=== PATIENT | male | born 1980 | race Caucasian/White ===

== ENCOUNTER 2016-08-06 14:27 | Inpatient (IN) | payer OTHER ==
[~2016-08-06] VITALS: Ht 170.2 cm; Wt 61.6 kg
[~2016-08-06 14:27] MED LIST: CELE20TA PO; TRAZ150T PO; ZOLO50TA OR; [UNRECOGNIZED DRUG - REMARK]; no home meds
[2016-08-06 15:36] LABS: MEAN CORPUSCULAR HGB CONC 33.8 g/dl (32.0-36.5); MEAN CORPUSCULAR VOLUME 94.6 fl (80.0-96.0); RED CELL DISTRIBUTION WIDTH 12.9 % (11.5-14.5); WHITE BLOOD COUNT 6.7 K/mm3 (4.0-10.0)
[2016-08-06 16:02] LABS: ALBUMIN 3.5 GM/DL (3.2-5.2); ALBUMIN/GLOBULIN RATIO 1.52 (1.00-1.93); ALKALINE PHOSPHATASE 85 U/L (45-117); ALT/SGPT 53 U/L (12-78); ANION GAP 10 MEQ/L (8-16); AST/SGOT 25 U/L (15-37); BILIRUBIN,DIRECT < 0.1 MG/DL (0.0-0.2); BILIRUBIN,TOTAL 0.2 MG/DL (0.2-1.0); BLOOD UREA NITROGEN 16 MG/DL (7-18); CALCIUM LEVEL 8.4 MG/DL (8.5-10.1); CARBON DIOXIDE LEVEL 26 MEQ/L (21-32); CHLORIDE LEVEL 107 MEQ/L (98-107); CREATININE FOR GFR 0.76 MG/DL (0.70-1.30); GLOMERULAR FILTRATION RATE > 60.0 (>60); GLUCOSE, FASTING 97 MG/DL (70-105); POTASSIUM SERUM 4.3 MEQ/L (3.5-5.1); SODIUM LEVEL 143 MEQ/L (136-145); TOTAL PROTEIN 5.8 GM/DL (6.4-8.2)
[2016-08-06 17:27] LABS: AMPHETAMINES LEVEL URINE NEGATIVE (NEGATIVE); BENZODIAZEPINES URINE NEGATIVE (NEGATIVE); COCAINE METABOLITE URINE NEGATIVE (NEGATIVE); CONTROL LINE INT CTR LINE PRESENT; METHADONE URINE NEGATIVE (NEGATIVE); OPIATES URINE NEGATIVE (NEGATIVE); TRICYCLIC ANTIDEPRESS URINE NEGATIVE (NEGATIVE)
[2016-08-06] MEDS ORDERED: MOM 30ML SUSPENSION UDC PO PRN (21:45)
[2016-08-06] MEDS ORDERED: MAALOX 30 ML SUSP *UDC PO PRN (21:45)
[2016-08-06] MEDS ORDERED: ACETAMINOPHEN TAB 650MG DOSE (2X325MG) PO PRN (21:45)
--- NOTE | 2016-08-06 22:38 | EDDOCDS ---
Nurse's Notes [facility] Name: Otis Benitez Age: 35 yrs Sex: Male : 1980 Arrival Date: 08/06/2016 Time: 14:27 Bed OBSERVATION Private MD: Diagnosis: Major depressive disorder, recurrent;Suicidal ideations Presentation: 08/06 14:31 Presenting complaint: Patient states: pt had been "kicked out" of his home by his mk4 mother and staying with a friend, today he smoked a lot of marijuana and called his mother and told her he was going to kill himself, denies this to me, states he may have said that but he is not s/i or h/i. Mental Health Triage Level: Level 2: The patient displays active suicidal ideations. Adult Sepsis Screening: The patient does not have new or worsening altered mentation. Patient's respiratory rate is less than 22. Systolic blood pressure is greater than 100. Patient has a qSOFA score of 0- Negative Sepsis Screen. Suicide/Homicide risk assessment- The patient admits to and/or has been reported to be having suicidal ideations. Patient denies SI and HI but presents with another emotional, behavioral or other mental health complaint. The patient reports that he/she has not been admitted to an inpatient mental health facility in the last 30 days. The patient reports that he/she has a recent or current history of substance abuse. The patient reports that he/she has no prior history of suicide attempt and/or organized plan. The patient reports that he/she has not experienced a significant life altering event in the last 30 days. The patient reports that he/she lacks adequate social support. Status: Patient is not a guest services assistant or dependent. Transition of care: patient was not received from another setting of care. 14:31 Acuity: IMANI Level 3 4 14:31 Method Of Arrival: Police Car 4 Triage Assessment: 14:36 General: Appears in no apparent distress. Pain: Denies pain. HIV screening NA for this 4 visit Offered previously. Historical: - Allergies: PENICILLINS; - Home Meds: 1. none - PMHx: Asthma; - PSHx: none; - Social history: Smoking status: No barriers to communication noted, The patient speaks fluent Indonesian, Smoking status: Patient uses tobacco products, heavy tobacco smoker. - Family history: Not pertinent. - : The pt / caregiver states he / she is not on anticoagulants. Home medication list is obtained from the patient. - Exposure Risk Screening:: None identified. Screenin:07 Screening information is obtained from the patient. Fall risk: No risks identified. mk4 Assistance ADL's: requires no assistance with activities of daily living. Abuse/DV Screen: The patient / caregiver reports he/she is: not in a situation that causes fear, pain or injury. Nutritional screening: No deficits noted. Advance Directives: Currently, there is no health care proxy. There is no active DNR order. There is no living will. There is no Power of Funding Coordinator. Advance directive information has not previously been placed in an [facility] medical record. Further advance directive information is declined. home support is adequate. Assessment: 14:45 General: Appears in no apparent distress, Smells of marijuana, eyes glassy. Pain: mk4 Denies pain. Neurological: Level of Consciousness is awake, alert. Respiratory: Airway is patent Respiratory effort is even, unlabored, Respiratory pattern is regular. Derm: No deficits noted. 16:00 General: Appears in no apparent distress, comfortable. Neurological: Level of mk4 Consciousness is awake, Oriented to person, place, time. 17:00 General: Appears in no apparent distress, comfortable. Respiratory: Airway is patent mk4 Respiratory effort is even, unlabored, Respiratory pattern is regular, symmetrical. 18:07 General: Appears in no apparent distress, comfortable, Behavior is cooperative, mk4 pleasant. 18:40 General: Appears in no apparent distress, comfortable, resting with eyes closed in room mk4 asked that dinner tray be left pt will eat it later. 19:10 General: Appears in no apparent distress, comfortable, Behavior is cooperative, quiet. slm General: resting on stretcher security observing . Respiratory: Airway is patent Respiratory effort is even, unlabored, Respiratory pattern is regular. 20:02 General: Appears in no apparent distress, comfortable, Behavior is restless. General: slm resting on stretcher pt questioning lead technical writer on when he can leave . Respiratory: Airway is patent Respiratory effort is even, unlabored. Derm: Skin is intact, Skin is pink, warm & dry. 20:47 General: Appears in no apparent distress, comfortable, Behavior is cooperative, slm pleasant. General: pt resting on stretcher security observing . Respiratory: Airway is patent Respiratory effort is even, unlabored. 21:27 General: Appears in no apparent distress, comfortable, Behavior is appropriate for age, slm cooperative, pleasant. General: resting on stretcher security observing . Respiratory: Airway is patent Respiratory effort is even, unlabored. Derm: Skin is pink, warm & dry. 22:14 General: Appears in no apparent distress, comfortable, Behavior is anxious, restless. slm General: pt upset about admission security observing . Respiratory: Airway is patent Respiratory effort is even, unlabored. Derm: Skin is pink, warm & dry. 22:33 General: Appears in no apparent distress, Behavior is anxious, appropriate for age, slm cooperative. Respiratory: Airway is patent. Derm: Skin is intact, Skin is pink, warm & dry. Mental Health Eval: 16:18 Mental health consult is initiated at 16:18. Status: The patient is not a ml4 guest services assistant or dependent. [facility] Behavioral Health: The patient is not an established patient of [facility] Behavioral Health. Referral Information: Evaluation referral is generated by a police agency: [employer] on . The patient was referred for evaluation because Pt made threat to harm self. 16:42 Subjective: The patients chief complaint is Per pt's mother, pt called her today and ca said he took OD of aspirin then retracted statement and told her he planned to take OD. Mother called police and pt brought to ED. Pt initially reluctant to speak with this lead technical writer, then stated he was not suicidal. "Save the bed for someone who needs it." Pt says he is upset because his parents still will not allow him to return home, but he does not say why. Pt has not lived at home for 8 months. Delusions are denied. Patient's mood is depressed, irritable, Hallucinations are denied. Pt has significant hx of drug and alcohol abuse. He has had 2 prior psych admissions in 2012 for SI and an OD of Xanax. Pt minimizing events today and does not elaborate on incident. 17:20 Subjective: Spoke with pt's mother (Lori [phone]) who says she called 911 because ca pt told her via text that he had taken OD of 25 aspirin. After mother called pt he told her he was "planning to take an OD." Mother feels pt is upset because parents won't allow him to return to their home due to his continued drug abuse. Pt was told to leave friend's home today, after staying there for several months. 17:51 Mental Health history: alcohol abuse, depression, abusing marijuana. methamphetamine. ca narcotics. Mental Health Admissions: 11/07 and 06/09 for SI, Depression and OD Current Outpatient Mental Health Services: None. Current living environment is homeless. The patient currently lives Pt lived with friend for 8 months and was asked to leave that home today. The patient is single. Patient presents to Emergency Department with the following symptoms within the past 2 weeks: depressed mood, drug abuse, feelings of helplessness/hopelessness, non-compliance, poor impulse control, relational problem, suicidal ideation with plan for pills. Substance abuse: Patient uses marijuana. Mental status exam: Patients appearance is disheveled Patient's behavior is superficially cooperative Speech is normal. Affect is appropriate. Mood is appropriate. Hallucinations are denied. Appetite is normal. Memory is good. Energy level is normal. Content of thought is Depression Thought process is intact. Cognitive level is oriented to person, place, time and situation Patient's insight is poor. Judgement is poor. Rapport with interviewer is guarded. Suicidal Ideation is denied. Homicidal ideation is denied. Disposition: Medically cleared for disposition by Danie Croft DO Psychiatric Consult is performed by phone with Dr Magen Aguilar. 18:52 Narrative: Awaiting face to face with Dr Aguilar. sc 21:30 Narrative: Dr. Aguilar currently at bedside. [facility] 22:03 Disposition: Psychiatric Consult is a face to face evaluation performed by Dr Us Ifeanyi Aguilar. [facility] Admission Criteria: The patient is experiencing suicidal ideation. The patient requires continuous observation and/or control to protect self, others or property. The patient's care requires a multi-modal treatment plan under close supervision and coordination due to the complexity and severity of the patient's symptoms. The patient requires administration and monitoring of psychoactive medications by skilled medical providers due to the side effects of the psychoactive medications or significant dosage adjustments. Legal Status: Patient's legal status will be Emergency admission: . [place] Safe Act: [place] Safe Act is applicable to this patient. The patient poses a risk to self or other and the Nursing Harnessmaker has been notified. He/She will enter the patient's data. DSM-V Differential Diagnosis: Unspecified Depressive Disorder (F32.9). Narrative: Notice of Status and Rights, FAQ, and Bill of Rights was given at bedside. Awaiting: transfer to [facility]. 22:29 Insurance Pre-Certification: [facility] [phone] ext. [phone]...spoke with dominic More cl advocate....pt. Athorized x 5 days with review on 08/10/16.....Auth. # [id number]. 22:33 Family Notification: Notification to family of patient status is not currently needed cl or appropriate. Awaiting: transfer to [facility]. Vital Signs: 14:36 BP 140 / 88; Pulse 92; Resp 18; Temp 97(T); Pulse Ox 97% on R/A; mk4 20:22 BP 123 / 75; Pulse 80; Resp 16; Temp 97.5(O); Pulse Ox 98% on R/A; Pain 0/10; slm 22:34 BP 138 / 84; Pulse 79; Resp 16; Temp 97.5; Pulse Ox 97% ; Pain 0/10; slm Vitals: 14:36 Log In time N/A- police car arrival. mk4 ED Course: 14:28 Patient visited by Chyna Boogie, Reg. lg 14:28 Patient moved to Waiting lg 14:31 Patient moved to [facility] mk4 14:33 Danie Croft DO is Attending Physician. cs11 14:33 Patient visited by Danie Croft DO. cs11 14:33 Triage Initiated mk4 14:34 Patient moved to OBSERVATION cs11 15:05 Patient name changed from Otis\\S\\Lisette\\S\\Benitez\\S\\ to Otis\\S\\Esequiel\\S\\Benitez. EDMS 15:06 [facility] [place] Payment Agreement was scanned into [employer] and attached to record. pm4 15:20 Acetaminophen Level Sent. mk4 15:20 Basic Metabolic Profile Sent. mk4 15:20 Complete Blood Count Sent. mk4 15:20 Ethyl Alcohol (ethanol) Sent. mk4 15:20 Liver Profile Sent. mk4 15:20 Salicylate Level Sent. mk4 15:20 Thyroid Stimulating Hormone Sent. mk4 15:34 Patient visited by Berna Macario RN. mk4 15:53 Patient visited by FerendNael santos Security Aide. pjf 16:08 Patient visited by Nael Cash Security Aide. pjf 16:56 Patient visited by Berna Macario RN. mk4 17:04 Drug Eval Toxicology ED Only Sent. mk4 17:06 Patient visited by Nael Cash Security Aide. pjf 17:15 Patient visited by Nael Cash Security Aide. pjf 17:29 Patient visited by Nael Cash Security Aide. pjf 17:43 Patient visited by Nael Cash Security Aide. pjf 18:01 Patient visited by Nael Cash Security Aide. pjf 18:07 The patient / caregiver is instructed regarding the plan of care and ED course. mk4 18:07 No IV's were initiated during this patient's visit. No procedures done that require mk4 assistance. 18:28 Patient visited by Nael Cash Security Aide. pjf 18:45 Patient visited by Nael Cash Security Aide. pjf 19:04 Patient visited by Leatha Gomes. cmb 19:10 Colleen Rivera LPN is Primary Nurse. slm 19:11 Patient visited by Colleen Rivera LPN. slm 19:39 Patient visited by Leatha Gomes. cmb 20:03 Patient visited by Colleen Rivera LPN. slm 20:06 Patient visited by Leatha Gomes. cmb 20:26 Patient visited by Colleen Rivera LPN. slm 20:34 Patient visited by Leatha Gomes. cmb 20:47 Patient visited by Leatha Gomes. cmb 20:47 Patient visited by Colleen Rivera LPN. slm 20:54 Patient visited by Leatha Gomes. cmb 21:21 Patient visited by Dakota Ames. jp4 21:27 Patient visited by Colleen Rivera LPN. slm 21:50 Patient visited by Dakota Ames. jp4 21:54 Magen Aguilar is Hospitalizing Provider. cs11 21:59 Patient visited by Dakota Ames. jp4 22:02 [facility] Legal paperwork was scanned into [employer] and attached to record. ml4 22:06 Other: [id number] consult was scanned into [employer] and attached to record. ml4 22:10 Patient visited by Dakota Ames. jp4 Attachments: 22:02 [facility] Legal paperwork ml4 Order Results: Lab Order: Acetaminophen Level; SPEC'M 08/06/16 14:48 Test: ACETAMINOPHEN LEVEL; Value: < 2.0; Range: 10.0-30.0; Abnormal: Below low normal; Units: UG/ML; Status: F Lab Order: Basic Metabolic Profile; SPEC'M 08/06/16 14:48 Test: GLUCOSE, FASTING; Value: 97; Range: 70-105; Units: MG/DL; Status: F Test: BLOOD UREA NITROGEN; Value: 16; Range: 7-18; Units: MG/DL; Status: F Test: CREATININE FOR GFR; Value: 0.76; Range: 0.70-1.30; Units: MG/DL; Status: F Test: GLOMERULAR FILTRATION RATE; Value: > 60.0; Range: >60; Status: F Test: SODIUM LEVEL; Value: 143; Range: 136-145; Units: MEQ/L; Status: F Test: POTASSIUM SERUM; Value: 4.3; Range: 3.5-5.1; Units: MEQ/L; Status: F Test: CHLORIDE LEVEL; Value: 107; Range: 98-107; Units: MEQ/L; Status: F Test: CARBON DIOXIDE LEVEL; Value: 26; Range: 21-32; Units: MEQ/L; Status: F Test: ANION GAP; Value: 10; Range: 8-16; Units: MEQ/L; Status: F Test: CALCIUM LEVEL; Value: 8.4; Range: 8.5-10.1; Abnormal: Below low normal; Units: MG/DL; Status: F Test Note: ; Units are mL/min/1.73 m2 Chronic Kidney Disease Staging per NKF: Stage I & II GFR >=60 Normal to Mildly Decreased Stage III GFR 30-59 Moderately Decreased Stage IV GFR 15-29 Severely Decreased Stage V GFR <15 Very Little GFR Left ESRD GFR <15 on EMPLOYEE SERVICES MANAGER Lab Order: Complete Blood Count; SPEC'M 08/06/16 14:48 Test: WHITE BLOOD COUNT; Value: 6.7; Range: 4.0-10.0; Units: K/mm3; Status: F Test: RED BLOOD COUNT; Value: 4.49; Range: 4.30-6.10; Units: M/mm3; Status: F Test: HEMOGLOBIN; Value: 14.3; Range: 14.0-18.0; Units: g/dl; Status: F Test: HEMATOCRIT; Value: 42.4; Range: 42.0-52.0; Units: %; Status: F Test: MEAN CORPUSCULAR VOLUME; Value: 94.6; Range: 80.0-96.0; Units: fl; Status: F Test: MEAN CORPUSCULAR HEMOGLOBIN; Value: 32.0; Range: 27.0-33.0; Units: pg; Status: F Test: MEAN CORPUSCULAR HGB CONC; Value: 33.8; Range: 32.0-36.5; Units: g/dl; Status: F Test: RED CELL DISTRIBUTION WIDTH; Value: 12.9; Range: 11.5-14.5; Units: %; Status: F Test: PLATELET COUNT, AUTOMATED; Value: 158; Range: 150-450; Units: k/mm3; Status: F Lab Order: Drug Eval Toxicology ED Only; SPEC'M 08/06/16 14:48 Test: AMPHETAMINES LEVEL URINE; Value: NEGATIVE; Range: NEGATIVE; Status: F Test: BARBITURATES URINE; Value: NEGATIVE; Range: NEGATIVE; Status: F Test: BENZODIAZEPINES URINE; Value: NEGATIVE; Range: NEGATIVE; Status: F Test: CANNABINOIDS URINE; Value: POSITIVE; Range: NEGATIVE; Abnormal: Above high normal; Status: F Test: COCAINE METABOLITE URINE; Value: NEGATIVE; Range: NEGATIVE; Status: F Test: METHADONE URINE; Value: NEGATIVE; Range: NEGATIVE; Status: F Test: OPIATES URINE; Value: NEGATIVE; Range: NEGATIVE; Status: F Test: TRICYCLIC ANTIDEPRESS URINE; Value: NEGATIVE; Range: NEGATIVE; Status: F Test Note: ; FALSE POSITIVE RESULTS CAN BE CAUSED BY THE USE OF PANTOPRAZOLE (PROTONIX). Lab Order: Ethyl Alcohol (ethanol); SPEC'M 08/06/16 14:48 Test: ETHYL ALCOHOL (ETHANOL); Value: < 0.003; Range: 0.000-0.010; Units: %; Status: F Lab Order: Liver Profile; SPEC'M 08/06/16 14:48 Test: AST/SGOT; Value: 25; Range: 15-37; Units: U/L; Status: F Test: ALT/SGPT; Value: 53; Range: 12-78; Units: U/L; Status: F Test: ALKALINE PHOSPHATASE; Value: 85; Range: 45-117; Units: U/L; Status: F Test: BILIRUBIN,TOTAL; Value: 0.2; Range: 0.2-1.0; Units: MG/DL; Status: F Test: BILIRUBIN,DIRECT; Value: < 0.1; Range: 0.0-0.2; Units: MG/DL; Status: F Test: TOTAL PROTEIN; Value: 5.8; Range: 6.4-8.2; Abnormal: Below low normal; Units: GM/DL; Status: F Test: ALBUMIN; Value: 3.5; Range: 3.2-5.2; Units: GM/DL; Status: F Test: ALBUMIN/GLOBULIN RATIO; Value: 1.52; Range: 1.00-1.93; Status: F Lab Order: Salicylate Level; SPEC'M 08/06/16 14:48 Test: SALICYLATE LEVEL; Value: 3.9; Range: 5.0-30.0; Abnormal: Below low normal; Units: MG/DL; Status: F Lab Order: Thyroid Stimulating Hormone; SPEC'M 08/06/16 14:48 Test: THYROID STIMULATING HORMONE; Value: 1.000; Range: 0.358-3.740; Units: uIU/ML; Status: F Outcome: 21:55 Decision to Hospitalize by Provider. cs11 22:36 Discharge Assessment: Patient awake, alert and oriented x 3. No cognitive and/or slm functional deficits noted. Patient verbalized understanding of disposition instructions. patient administered narcotics - no. The following High Risk Discharge criteria are identified: None. Admitted to Psych accompanied by tech, via wheelchair, with chart. Condition: stable. No special radiology studies were completed. Property removed, inventory done, secured in belongings bag- placed in locked locker. 22:37 Patient left the ED. slm Signatures: Dispatcher [employer] EDMabel Mahan PSA PSA ca Malvin Arnold, PSA PSA cl Chyna Boogie, Reg Reg lg Nael Cash, Becky Gaona, PSA PSA ml4 Leatha Gomes cmb Danie Croft, DO DO cs11 Colleen Rivera,SAFETY EQUIPMENT TESTER SAFETY EQUIPMENT TESTER slm Berna Macario RN RN mk4 Kwaku, Dakota jp4 Nael Arias, Reg Reg pm4 Corrections: (The following items were deleted from the chart) 14:37 14:35 Allergies: no known allergies; mk4 mk4 MTDD
--- NOTE | 2016-08-06 22:38 | EDDOCDS ---
Physician Documentation [facility] Name: Otis Benitez Age: 35 yrs Sex: Male : 1980 Arrival Date: 08/06/2016 Time: 14:27 Bed OBSERVATION Private MD: Disposition: 08/06/16 21:55 Hospitalization ordered by Magen Aguilar for Inpatient Admission. Preliminary diagnosis are Major depressive disorder, recurrent, Suicidal ideations. - Bed requested for Admit. - Status is Inpatient Admission. slm - Condition is Stable. - Problem is an ongoing problem. - Symptoms are unchanged. Historical: - Allergies: PENICILLINS; - Home Meds: 1. none - PMHx: Asthma; - PSHx: none; - Social history: Smoking status: No barriers to communication noted, The patient speaks fluent Divehi, Smoking status: Patient uses tobacco products, heavy tobacco smoker. - Family history: Not pertinent. - : The pt / caregiver states he / she is not on anticoagulants. Home medication list is obtained from the patient. - Exposure Risk Screening:: None identified. Vital Signs: 08/06 14:36 BP 140 / 88; Pulse 92; Resp 18; Temp 97(T); Pulse Ox 97% on R/A; mk4 20:22 BP 123 / 75; Pulse 80; Resp 16; Temp 97.5(O); Pulse Ox 98% on R/A; Pain 0/10; slm 22:34 BP 138 / 84; Pulse 79; Resp 16; Temp 97.5; Pulse Ox 97% ; Pain 0/10; slm MDM: 14:34 Consult PFS/PSA/Transit Bus Driver ordered. cs11 14:34 Consult PFS/PSA/Transit Bus Driver: Patient's case requires discussion with on-call cs11 Psychiatrist ordered. 14:34 PSA/PFS to call Nursing Director Of Online Merchandising, to enter patient data on [place] Safe Act if patient cs11 involuntarily admitted or transferred for SI or HI ordered. 14:34 Confirm accurate psychiatric medication list and times of last dosage ordered. cs11 14:34 Detain Pt Until Medically/PFS Cleared ordered. cs11 14:34 Acetaminophen Level Ordered. EDMS 14:34 Basic Metabolic Profile Ordered. EDMS 14:34 Complete Blood Count Ordered. EDMS 14:34 Drug Eval Toxicology ED Only Ordered. EDMS 14:34 Ethyl Alcohol (ethanol) Ordered. EDMS 14:34 Liver Profile Ordered. EDMS 14:35 Salicylate Level Ordered. EDMS 14:35 Thyroid Stimulating Hormone Ordered. EDMS 14:56 Financial registration complete. pm4 15:06 [facility] Payment Agreement was scanned into [employer] and attached to record. pm4 15:20 Consult PFS/PSA/Transit Bus Driver complete. mk4 15:20 Consult PFS/PSA/Transit Bus Driver: Patient's case requires discussion with on-call 4 Psychiatrist complete. 15:20 PSA/PFS to call Nursing Director Of Online Merchandising, to enter patient data on [place] Safe Act if patient mk4 involuntarily admitted or transferred for SI or HI complete. 16:56 REGULAR DIET PLASTIC TURNER+DIET ordered. EDMS 21:44 Admit to [facility]: ordered. EDMS 21:45 REGULAR DIET ordered. EDMS 21:53 Acetaminophen Level Reviewed. cs11 21:53 Basic Metabolic Profile Reviewed. cs11 21:53 Drug Eval Toxicology ED Only Reviewed. cs11 21:53 Liver Profile Reviewed. cs11 21:53 Salicylate Level Reviewed. cs11 21:53 Complete Blood Count Reviewed. cs11 21:53 Ethyl Alcohol (ethanol) Reviewed. cs11 21:53 Thyroid Stimulating Hormone Reviewed. cs11 21:56 BED REQUEST+ADM ordered. EDMS 22:02 [facility] Legal paperwork was scanned into [employer] and attached to record. ml4 22:06 Other: [id number] consult was scanned into [employer] and attached to record. ml4 Signatures: Dispatcher [employer] EDMS Becky Schwarz, PSA PSA ml4 Danie Croft, DO cs11 Colleen Rivera,JASON PARRAN slBerna Araujo RN RN mk4 Nael Arias, Reg Reg pm4 The chart was reviewed and I authenticate all verbal orders and agree with the evaluation and treatment provided.Corrections: (The following items were deleted from the chart) 14:37 14:35 Allergies: no known allergies; 4 4 Attachments: 15:06 [facility] Payment Agreement pm4 MTDD
[2016-08-07 06:10] VITALS: BP 144/69
--- NOTE | 2016-08-07 10:42 | HPEPDOC ---
Medical History and Physical Date of Admission Aug 06, 2016 at 22:44 History and Physical PCP: None ATTENDING: Dr. Tylor Mitchell HPI: 35yoM admitted to [facility] for MDD, being medically examined today. No acute medical complaints today. Denies any fevers, chills, weakness, fatigue, NORTON, CP, SOB, cough, palpitations, abdominal pain, N/V/D or changes in bowel or bladder habits. 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 Tobacco use: One to 2 packs per day ETOH: 2-3 drinks every 3 months Illicit Drugs: States he has used "everything" in the past but reluctant to elaborate. States has not used "pills" (opiates) in the past 10 months. Uses marijuana daily. IV Drug Use: Denies Tattoos done unprofessionally: Denies FAMHX: Mother: Alive, well Father: Alive, well Siblings: 2 sisters Alive, well Children: Alive, 22q deletion syndrome. Unexpected deaths due to medical reasons: None. ROS: As noted in HPI, otherwise 11pt ROS of systems reviewed and unremarkable. PE: GEN: 35yoM, appears stated age. Well-nourished, well developed. No acute distress. Alert and oriented x 3. Pleasant, interactive. HEENT: Normocephalic, atraumatic. Pupils are equal, round, and reactive to light. Extraocular movements are intact. No nystagmus appreciated. Sclera are nonicteric. Conjunctiva without injection. Nose midline. Nasal turbinates without bogginess. EACs both patent BL. TMs both visualized and adame with good cone of light, no bulging or erythema. No facial asymmetry. Moist mucous membranes. Dentition fair. Pharynx pink and moist, no cobblestoning. Neck supple , trachea midline. No lymphadenopathy or thyromegaly appreciated. CHEST: Regular rate and rhythm, +S1, +S2 LUNGS: Clear to auscultation bilaterally. No wheezes, rales, or rhonchi. Breathing appears symmetric and easy. Patient is speaking in full sentences. No accessory muscle use. ABD: Round, soft, non-tender, non-distended. +Bowel sounds throughout. No rebound or guarding. No costovertebral angle tenderness. EXT: Pulses 2+ bilaterally dorsalis pedis and radial. No lower extremity edema appreciated. SKIN: Felt, dry, warm. Capillary refill <2sec. No rashes. NEURO: Alert and oriented x 3. Cranial nerves III-XII are intact. No focal deficits appreciated. EKG: pending. A&P: 35yoM admitted to [facility] for MDD 1. Psych. Plan per Psychiatry. Obtain baseline EKG to assure the safety of psychiatric medications as they can prolong the QT interval. 2. Nicotine dependence. Patch available. 3. History of Asthma. Albuterol 2 puffs Q4hrs as needed. 4. Follow up. No Primary Care Provider. Will attempt to establish PCP on discharge. 5. Substance use. Per psychiatry. 6. Staff member present throughout exam, Tommy dennis. Vital Signs Vital Signs Label Value Date Time Patient Temperature 98.4 degrees F 08/07/16 0610 Temperature Source Tympanic 08/07/16 0610 Pulse 73 08/07/16 0610 Pulse 73 08/07/16 0610 Respiratory Rate 16 bpm 08/07/16 0610 Blood Pressure Assessment 144/69 (94) 08/07/16 0610 Laboratory Data Labs 24H Laboratory Tests 2 08/06/16 14:48: Acetaminophen Level < 2.0L, Aspartate Amino Transf (AST/SGOT) 25, Alanine Aminotransferase (ALT/SGPT) 53, Alkaline Phosphatase 85, Total Bilirubin 0.2, Direct Bilirubin < 0.1, Albumin 3.5, Albumin/Globulin Ratio 1.52, Anion Gap 10, Calcium Level 8.4L, Ethyl Alcohol Level < 0.003, Glomerular Filtration Rate > 60.0, Salicylates Level 3.9L, Thyroid Stimulating Hormone (TSH) 1.000, Total Protein 5.8L, Urine Amphetamine Level NEGATIVE, Urine Benzodiazepines Screen NEGATIVE, Urine Cannabinoids POSITIVEH, Urine Cocaine Metabolite NEGATIVE, Urine Opiates Screen NEGATIVE, Urine Barbiturates, Qualitative NEGATIVE, Urine Methadone Screen NEGATIVE, Urine Tricyclic Antidepressants NEGATIVE CBC/BMP Laboratory Tests 08/06/16 14:48 Red Blood Count 4.49, Mean Corpuscular Volume 94.6, Mean Corpuscular Hemoglobin 32.0, Mean Corpuscular Hemoglobin Concent 33.8, Red Cell Distribution Width 12.9 Home Medications No Active Prescriptions or Reported Meds Allergies Coded Allergies: Penicillins (Verified Allergy, Intermediate, RASH, 10/27/12) Penicillins Cross Reactors (Verified Allergy, Intermediate, RASH, 10/27/12) Alice Tracey Aug 07, 2016 10:42
[2016-08-07] MEDS ORDERED: ALBUTEROL 90 MCG/ACT 8GM HFA INHALER INH PRN (10:45)
[2016-08-07] MEDS: NICOTINE 21MG/24HR 1 EA TRANSDERMAL TD SCH (12:03)
[2016-08-07 18:00] VITALS: BP 120/60
--- NOTE | 2016-08-07 20:48 | ECGEPIP ---
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
[2016-08-07] MEDS: traZODone 50 MG TAB PO PRN (22:49)
--- NOTE | 2016-08-07 23:55 | MHHPE ---
DATE OF ADMISSION: 08/06/2016 DATE OF SERVICE: 08/07/2016 CHIEF COMPLAINT: "My mother called and said I wanted to kill myself." HISTORY OF THE PRESENT ILLNESS: Otis Benitez is a 35-year-old [place] man who was brought to the emergency room by police after his mother called [facility] ([facility]) to report that the patient had made threats to harm himself. I first encountered Mr. Benitez in the emergency department during which I interviewed him and had an opportunity of speaking with his mother by telephone with his consent. The patient stated in the emergency room (ER) that he was distraught because of his mother kicking him out of her house and that he felt totally abandoned and rejected. According the patient's mother, the patient has almost his entire life been dependent on her and her and not willing to be independent and seek help for his mental illness and substance abuse problems. On the day of the current emergency department visit, he called her to report that he had ingested several aspirin tablets in order to kill himself, although subsequently recanting his story, stating that he did not actually swallow said pills but had plans of doing so. Mom called authorities still to report the incident, leading to his being brought to the emergency room. Mom further reported that the patient has been quite noncompliant with recommended treatment for his problems, including not taking his psychiatric medications. On interviewing the patient on the unit, he reports two previous [facility] admissions and admits that he did not followup with outpatient treatment recommendations. He is noted to be emotional, reporting worsening depressive symptoms including depressed mood, insomnia, feelings of hopelessness and helplessness. PAST PSYCHIATRIC HISTORY: Mr. Benitez had two previous [facility] admissions from 10/31/2011 to 11/05/2011 and 06/03/2012 to 06/09/2012, both related to worsening depression, substance abuse and suicidal ideation. In his first admission, he reportedly ingested 25-30 tablets of Xanax of 1 mg each tablets in a suicide attempt. The second admission was on a voluntary basis. SUBSTANCE ABUSE HISTORY: Mr. Benitez has an extensive substance use history, including use of opioids, benzodiazepines, alcohol, marijuana and several other substances he refused to elaborate on but admitted to having used every substance under the sun. He generally has not been committed to substance abuse treatment programs. His two previous admissions, as noted, were also related, in part, to substance use problems. MEDICAL HISTORY: He was diagnosed in childhood with asthma but has not had symptoms as an adult. ALLERGIES: He is allergic to PENICILLIN. FAMILY HISTORY: He denies family history of psychiatric problems; however, significant alcohol problems reported involving grandfather and uncle. No reported family history of suicide. SOCIAL HISTORY: The patient was raised by his family, had normal childhood and adolescence. He denies any form of abuse. He had lived with his parents until recently kicked out by them, but was living with a friend prior to calling mother leading to recent visit when he called mother to report that he ingested some aspirin tablets. 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 REVIEW OF SYSTEMS: Please refer to assessment, physical and laboratory i investigations by the medical physician emergency room physician assistant. VITAL SIGNS: Blood pressure 120/69, pulse 73, respirations 16, temperature 98.4. MENTAL STATUS EXAMINATION: The patient is of average height and slight thin build. He is groomed and dressed in [facility]. Attitude is cooperative and behavior calm. He maintains eye contact and presents with no unusual mannerisms. Speech is of normal volume, rate and inflection. Thought process is organized and logical. No abnormal thought content such as delusions, ideas of reference. He denies hallucinations and does not appear internally preoccupied. His mood is notably depressed, and he is observed to be teary on occasions. He denies active suicidal ideation but admits to occasional thoughts of suicide. No homicidal thoughts, plan or intent evident. Cognitively, he is alert and responsive to interview process. He is well oriented as to time, place and person. His insight is fair. Judgment currently not impaired and impulse control historically inadequate in terms of self harmful behaviors, including substance abuse. DIAGNOSES: 1. Major depressive disorder, currently severe. 2. Opioid use disorder. 3. Cannabis use disorder. PROBLEM LIST: 1. Depressed mood. 2. Risk for suicide. 3. Substance abuse. PLAN: 1. Admission to inpatient unit, inpatient mental health unit for stabilization. 2. Provision of reasonable safety precautions. 3. Pharmacotherapy. The patient will be started on Lexapro 10 mg orally daily for treatment of depression. Risks and benefits of Lexapro discussed with the patient. He demonstrates understanding and consents to trial of the medication. 4. Psychotherapeutic interventions including group, individual and activity therapies, ongoing assessment and supportive therapy. ESTIMATED LENGTH OF STAY: 5-7 days. MTDD
[2016-08-08 06:52] VITALS: BP 143/75
[2016-08-08] MEDS: NICOTINE 21MG/24HR 1 EA TRANSDERMAL TD SCH (09:00)
[2016-08-08] MEDS: ESCITALOPRAM OXALATE 10 MG TAB (LEXAPRO) PO SCH (09:00)
[2016-08-08 18:00] VITALS: BP 117/68
--- NOTE | 2016-08-08 20:02 | IPN ---
DATE: 08/08/2016 TREATMENT: This is the third day of inpatient admission for this patient with an admitting diagnosis of major depressive disorder. He was started on Lexapro 10 mg orally daily for treatment of his depressive symptoms. During admission interview, treatment with Lexapro was explained and the patient did agree to take the medication. However, reports indicate that he refused the initial dose. I discussed the problem with the patient, and he stated that he does not want to take any medication, and that he would rather stick with psychotherapy. He reports still being depressed, although not as severe as he was on admission. He denies having any thoughts, plan or intent of harming himself or others. OBSERVATION: Vital signs are stable. Blood pressure 130/75, pulse 78, respirations 16, temperature 97.5. He is observed occasionally lying in his bed and at times, socializing with his peers. His grooming is slightly fair today and he is dressed in [facility]. No evidence of extrapyramidal symptoms (EPS). The patient currently reports mood as depressed, although indicates he feels slightly less so. Affect is mood congruent. No overt psychotic features evident and he denies suicidal thoughts, plan or intent, as well as homicidal ideation. ASSESSMENT: The patient is currently noncompliant with treatment despite report of depressive symptomatology. PLAN: He will be continued on the current medication and will be encouraged to comply. GIOVANAD
[2016-08-08] MEDS: traZODone 50 MG TAB PO PRN (22:38)
--- NOTE | 2016-08-08 23:38 | EDDOCDS ---
Nurse's Notes [facility] Name: Otis Benitez Age: 35 yrs Sex: Male : 1980 Arrival Date: 08/06/2016 Time: 14:27 Bed OBSERVATION Private MD: Diagnosis: Major depressive disorder, recurrent;Suicidal ideations Presentation: 08/06 14:31 Presenting complaint: Patient states: pt had been "kicked out" of his home by his mk4 mother and staying with a friend, today he smoked a lot of marijuana and called his mother and told her he was going to kill himself, denies this to me, states he may have said that but he is not s/i or h/i. Mental Health Triage Level: Level 2: The patient displays active suicidal ideations. Adult Sepsis Screening: The patient does not have new or worsening altered mentation. Patient's respiratory rate is less than 22. Systolic blood pressure is greater than 100. Patient has a qSOFA score of 0- Negative Sepsis Screen. Suicide/Homicide risk assessment- The patient admits to and/or has been reported to be having suicidal ideations. Patient denies SI and HI but presents with another emotional, behavioral or other mental health complaint. The patient reports that he/she has not been admitted to an inpatient mental health facility in the last 30 days. The patient reports that he/she has a recent or current history of substance abuse. The patient reports that he/she has no prior history of suicide attempt and/or organized plan. The patient reports that he/she has not experienced a significant life altering event in the last 30 days. The patient reports that he/she lacks adequate social support. Status: Patient is not a meter and service line inspector or dependent. Transition of care: patient was not received from another setting of care. 14:31 Acuity: IMANI Level 3 4 14:31 Method Of Arrival: Police Car 4 Triage Assessment: 14:36 General: Appears in no apparent distress. Pain: Denies pain. HIV screening NA for this 4 visit Offered previously. Historical: - Allergies: PENICILLINS; - Home Meds: 1. none - PMHx: Asthma; - PSHx: none; - Social history: Smoking status: No barriers to communication noted, The patient speaks fluent Uzbek, Smoking status: Patient uses tobacco products, heavy tobacco smoker. - Family history: Not pertinent. - : The pt / caregiver states he / she is not on anticoagulants. Home medication list is obtained from the patient. - Exposure Risk Screening:: None identified. Screenin:07 Screening information is obtained from the patient. Fall risk: No risks identified. mk4 Assistance ADL's: requires no assistance with activities of daily living. Abuse/DV Screen: The patient / caregiver reports he/she is: not in a situation that causes fear, pain or injury. Nutritional screening: No deficits noted. Advance Directives: Currently, there is no health care proxy. There is no active DNR order. There is no living will. There is no Power of Reproduction Artist. Advance directive information has not previously been placed in an [facility] medical record. Further advance directive information is declined. home support is adequate. Assessment: 14:45 General: Appears in no apparent distress, Smells of marijuana, eyes glassy. Pain: mk4 Denies pain. Neurological: Level of Consciousness is awake, alert. Respiratory: Airway is patent Respiratory effort is even, unlabored, Respiratory pattern is regular. Derm: No deficits noted. 16:00 General: Appears in no apparent distress, comfortable. Neurological: Level of mk4 Consciousness is awake, Oriented to person, place, time. 17:00 General: Appears in no apparent distress, comfortable. Respiratory: Airway is patent mk4 Respiratory effort is even, unlabored, Respiratory pattern is regular, symmetrical. 18:07 General: Appears in no apparent distress, comfortable, Behavior is cooperative, mk4 pleasant. 18:40 General: Appears in no apparent distress, comfortable, resting with eyes closed in room mk4 asked that dinner tray be left pt will eat it later. 19:10 General: Appears in no apparent distress, comfortable, Behavior is cooperative, quiet. slm General: resting on stretcher security observing . Respiratory: Airway is patent Respiratory effort is even, unlabored, Respiratory pattern is regular. 20:02 General: Appears in no apparent distress, comfortable, Behavior is restless. General: slm resting on stretcher pt questioning publicity writer on when he can leave . Respiratory: Airway is patent Respiratory effort is even, unlabored. Derm: Skin is intact, Skin is pink, warm & dry. 20:47 General: Appears in no apparent distress, comfortable, Behavior is cooperative, slm pleasant. General: pt resting on stretcher security observing . Respiratory: Airway is patent Respiratory effort is even, unlabored. 21:27 General: Appears in no apparent distress, comfortable, Behavior is appropriate for age, slm cooperative, pleasant. General: resting on stretcher security observing . Respiratory: Airway is patent Respiratory effort is even, unlabored. Derm: Skin is pink, warm & dry. 22:14 General: Appears in no apparent distress, comfortable, Behavior is anxious, restless. slm General: pt upset about admission security observing . Respiratory: Airway is patent Respiratory effort is even, unlabored. Derm: Skin is pink, warm & dry. 22:33 General: Appears in no apparent distress, Behavior is anxious, appropriate for age, slm cooperative. Respiratory: Airway is patent. Derm: Skin is intact, Skin is pink, warm & dry. 23:04 General: this publicity writer observed pt in position on floor of elevator upon transfer af2 to floor. per Dakota Ames, ASSISTANT PURCHASING MANAGER pt angry due to being transferred to [facility] and threw himself down on floor of elevator, possibly hitting head. this publicity writer notified Dr. Lubin and Dr. Aguilar of event. no new orders received at this time. . Mental Health Eval: 16:18 Mental health consult is initiated at 16:18. Status: The patient is not a ml4 meter and service line inspector or dependent. [facility] Behavioral Health: The patient is not an established patient of [facility] Behavioral Health. Referral Information: Evaluation referral is generated by a police agency: [facility] on . The patient was referred for evaluation because Pt made threat to harm self. 16:42 Subjective: The patients chief complaint is Per pt's mother, pt called her today and ca said he took OD of aspirin then retracted statement and told her he planned to take OD. Mother called police and pt brought to ED. Pt initially reluctant to speak with this publicity writer, then stated he was not suicidal. "Save the bed for someone who needs it." Pt says he is upset because his parents still will not allow him to return home, but he does not say why. Pt has not lived at home for 8 months. Delusions are denied. Patient's mood is depressed, irritable, Hallucinations are denied. Pt has significant hx of drug and alcohol abuse. He has had 2 prior psych admissions in 2011 for SI and an OD of Xanax. Pt minimizing events today and does not elaborate on incident. 17:20 Subjective: Spoke with pt's mother (Lori [phone]) who says she called 911 because ca pt told her via text that he had taken OD of 25 aspirin. After mother called pt he told her he was "planning to take an OD." Mother feels pt is upset because parents won't allow him to return to their home due to his continued drug abuse. Pt was told to leave friend's home today, after staying there for several months. 17:51 Mental Health history: alcohol abuse, depression, abusing marijuana. methamphetamine. ca narcotics. Mental Health Admissions: 11/07 and 06/09 for SI, Depression and OD Current Outpatient Mental Health Services: None. Current living environment is homeless. The patient currently lives Pt lived with friend for 8 months and was asked to leave that home today. The patient is single. Patient presents to Emergency Department with the following symptoms within the past 2 weeks: depressed mood, drug abuse, feelings of helplessness/hopelessness, non-compliance, poor impulse control, relational problem, suicidal ideation with plan for pills. Substance abuse: Patient uses marijuana. Mental status exam: Patients appearance is disheveled Patient's behavior is superficially cooperative Speech is normal. Affect is appropriate. Mood is appropriate. Hallucinations are denied. Appetite is normal. Memory is good. Energy level is normal. Content of thought is Depression Thought process is intact. Cognitive level is oriented to person, place, time and situation Patient's insight is poor. Judgement is poor. Rapport with interviewer is guarded. Suicidal Ideation is denied. Homicidal ideation is denied. Disposition: Medically cleared for disposition by Danie Croft DO Psychiatric Consult is performed by phone with Dr Magen Aguilar. 18:52 Narrative: Awaiting face to face with Dr Aguilar. nc 21:30 Narrative: Dr[facility] Aguilar [facility] 22[facility]03 Disposition: Psychiatric Consult is a face to face evaluation performed by Dr Magen Aguilar. [facility] Admission Criteria: The patient is experiencing suicidal ideation. The patient requires continuous observation and/or control to protect self, others or property. The patient's care requires a multi-modal treatment plan under close supervision and coordination due to the complexity and severity of the patient's symptoms. The patient requires administration and monitoring of psychoactive medications by skilled medical providers due to the side effects of the psychoactive medications or significant dosage adjustments. Legal Status: Patient's legal status will be Emergency admission: 39. [place] Safe Act: [place] Safe Act is applicable to this patient. The patient poses a risk to self or other and the Nursing Agriculture Instructor has been notified. He/She will enter the patient's data. DSM-V Differential Diagnosis: Unspecified Depressive Disorder (F32.9). Narrative: Notice of Status and Rights, FAQ, and Bill of Rights was given at bedside. Awaiting: transfer to [facility]. 22:29 Insurance Pre-Certification: [facility] [phone]. [phone]...spoke with dominic More cl advocate....pt. Athorized x 5 days with review on 08/10/16.....Auth. # [id number]. 22:33 Family Notification: Notification to family of patient status is not currently needed cl or appropriate. Awaiting: transfer to [facility]. Vital Signs: 14:36 BP 140 / 88; Pulse 92; Resp 18; Temp 97(T); Pulse Ox 97% on R/A; mk4 20:22 BP 123 / 75; Pulse 80; Resp 16; Temp 97.5(O); Pulse Ox 98% on R/A; Pain 0/10; slm 22:34 BP 138 / 84; Pulse 79; Resp 16; Temp 97.5; Pulse Ox 97% ; Pain 0/10; slm Vitals: 14:36 Log In time N/A- police car arrival. 4 ED Course: 14:28 Patient visited by Chyna Boogie Reg. lg 14:28 Patient moved to Waiting lg 14:31 Patient moved to [facility] mk4 14:33 Danie Croft DO is Attending Physician. cs11 14:33 Patient visited by Danie Croft DO. cs11 14:33 Triage Initiated mk4 14:34 Patient moved to OBSERVATION cs11 15:05 Patient name changed from Otis\\S\\J\\S\\Benitez\\S\\ to Otis\\S\\Esequiel\\S\\Benitez. EDMS 15:06 [facility] Payment Agreement was scanned into [employer] and attached to record. pm4 15:20 Acetaminophen Level Sent. mk4 15:20 Basic Metabolic Profile Sent. mk4 15:20 Complete Blood Count Sent. mk4 15:20 Ethyl Alcohol (ethanol) Sent. mk4 15:20 Liver Profile Sent. mk4 15:20 Salicylate Level Sent. mk4 15:20 Thyroid Stimulating Hormone Sent. mk4 15:34 Patient visited by Berna Macario RN. mk4 15:53 Patient visited by Nael Cash Security Aide. pjf 16:08 Patient visited by Nael Cash Security Aide. pjf 16:56 Patient visited by Berna Macario RN. mk4 17:04 Drug Eval Toxicology ED Only Sent. mk4 17:06 Patient visited by Nael Cash Security Aide. pjf 17:15 Patient visited by Nael Cash Security Aide. pjf 17:29 Patient visited by Nael Cash Security Aide. pjf 17:43 Patient visited by Nael Cash Security Aide. pjf 18:01 Patient visited by Nael Cash Security Aide. pjf 18:07 The patient / caregiver is instructed regarding the plan of care and ED course. mk4 18:07 No IV's were initiated during this patient's visit. No procedures done that require mk4 assistance. 18:28 Patient visited by Nael Cash Security Aide. pjf 18:45 Patient visited by Nael Cash Security Aide. pjf 19:04 Patient visited by Leatha Gomes. cmb 19:10 Colleen Rivera LPN is Primary Nurse. slm 19:11 Patient visited by Colleen Rivera LPN. slm 19:39 Patient visited by Leatha Gomes. cmb 20:03 Patient visited by Colleen Rivera LPN. slm 20:06 Patient visited by Leatha Gomes. cmb 20:26 Patient visited by Colleen Rivera LPN. slm 20:34 Patient visited by Leatha Gomes. cmb 20:47 Patient visited by Leatha Gomes. cmb 20:47 Patient visited by Colleen Rivera LPN. slm 20:54 Patient visited by Leatha Gomes. cmb 21:21 Patient visited by Dakota Ames. jp4 21:27 Patient visited by Colleen Rivera LPN. slm 21:50 Patient visited by Dakota Ames. jp4 21:54 Magen Aguilar is Hospitalizing Provider. cs11 21:59 Patient visited by Dakota Ames. jp4 22:02 E Legal paperwork was scanned into [employer] and attached to record. ml4 22:06 Other: Mwox-oy-Rieh consult was scanned into [employer] and attached to record. ml4 22:10 Patient visited by Dakota Ames. jp4 23:07 Patient visited by Nurys Dhaliwal RN. af2 08/07 03:46 T-Sheet-- Draft Copy was scanned into Rev[employer] and attached to record. hs2 12:26 Other: PROGRESS NOTE was scanned into [employer] and attached to record. gb Attachments: 22:02 E Legal paperwork ml4 Order Results: Lab Order: Acetaminophen Level; SPEC'M 08/06/16 14:48 Test: ACETAMINOPHEN LEVEL; Value: < 2.0; Range: 10.0-30.0; Abnormal: Below low normal; Units: UG/ML; Status: F Lab Order: Basic Metabolic Profile; SPEC'M 08/06/16 14:48 Test: GLUCOSE, FASTING; Value: 97; Range: 70-105; Units: MG/DL; Status: F Test: BLOOD UREA NITROGEN; Value: 16; Range: 7-18; Units: MG/DL; Status: F Test: CREATININE FOR GFR; Value: 0.76; Range: 0.70-1.30; Units: MG/DL; Status: F Test: GLOMERULAR FILTRATION RATE; Value: > 60.0; Range: >60; Status: F Test: SODIUM LEVEL; Value: 143; Range: 136-145; Units: MEQ/L; Status: F Test: POTASSIUM SERUM; Value: 4.3; Range: 3.5-5.1; Units: MEQ/L; Status: F Test: CHLORIDE LEVEL; Value: 107; Range: 98-107; Units: MEQ/L; Status: F Test: CARBON DIOXIDE LEVEL; Value: 26; Range: 21-32; Units: MEQ/L; Status: F Test: ANION GAP; Value: 10; Range: 8-16; Units: MEQ/L; Status: F Test: CALCIUM LEVEL; Value: 8.4; Range: 8.5-10.1; Abnormal: Below low normal; Units: MG/DL; Status: F Test Note: ; Units are mL/min/1.73 m2 Chronic Kidney Disease Staging per NKF: Stage I & II GFR >=60 Normal to Mildly Decreased Stage III GFR 30-59 Moderately Decreased Stage IV GFR 15-29 Severely Decreased Stage V GFR <15 Very Little GFR Left ESRD GFR <15 on DIVIDEND DEPOSIT ENTRY CLERK Lab Order: Complete Blood Count; SPEC'M 08/06/16 14:48 Test: WHITE BLOOD COUNT; Value: 6.7; Range: 4.0-10.0; Units: K/mm3; Status: F Test: RED BLOOD COUNT; Value: 4.49; Range: 4.30-6.10; Units: M/mm3; Status: F Test: HEMOGLOBIN; Value: 14.3; Range: 14.0-18.0; Units: g/dl; Status: F Test: HEMATOCRIT; Value: 42.4; Range: 42.0-52.0; Units: %; Status: F Test: MEAN CORPUSCULAR VOLUME; Value: 94.6; Range: 80.0-96.0; Units: fl; Status: F Test: MEAN CORPUSCULAR HEMOGLOBIN; Value: 32.0; Range: 27.0-33.0; Units: pg; Status: F Test: MEAN CORPUSCULAR HGB CONC; Value: 33.8; Range: 32.0-36.5; Units: g/dl; Status: F Test: RED CELL DISTRIBUTION WIDTH; Value: 12.9; Range: 11.5-14.5; Units: %; Status: F Test: PLATELET COUNT, AUTOMATED; Value: 158; Range: 150-450; Units: k/mm3; Status: F Lab Order: Drug Eval Toxicology ED Only; SPEC'08/06/16 14:48 Test: AMPHETAMINES LEVEL URINE; Value: NEGATIVE; Range: NEGATIVE; Status: F Test: BARBITURATES URINE; Value: NEGATIVE; Range: NEGATIVE; Status: F Test: BENZODIAZEPINES URINE; Value: NEGATIVE; Range: NEGATIVE; Status: F Test: CANNABINOIDS URINE; Value: POSITIVE; Range: NEGATIVE; Abnormal: Above high normal; Status: F Test: COCAINE METABOLITE URINE; Value: NEGATIVE; Range: NEGATIVE; Status: F Test: METHADONE URINE; Value: NEGATIVE; Range: NEGATIVE; Status: F Test: OPIATES URINE; Value: NEGATIVE; Range: NEGATIVE; Status: F Test: TRICYCLIC ANTIDEPRESS URINE; Value: NEGATIVE; Range: NEGATIVE; Status: F Test Note: ; FALSE POSITIVE RESULTS CAN BE CAUSED BY THE USE OF PANTOPRAZOLE (PROTONIX). Lab Order: Ethyl Alcohol (ethanol); SPEC'M 08/06/16 14:48 Test: ETHYL ALCOHOL (ETHANOL); Value: < 0.003; Range: 0.000-0.010; Units: %; Status: F Lab Order: Liver Profile; SPEC' 08/06/16 14:48 Test: AST/SGOT; Value: 25; Range: 15-37; Units: U/L; Status: F Test: ALT/SGPT; Value: 53; Range: 12-78; Units: U/L; Status: F Test: ALKALINE PHOSPHATASE; Value: 85; Range: 45-117; Units: U/L; Status: F Test: BILIRUBIN,TOTAL; Value: 0.2; Range: 0.2-1.0; Units: MG/DL; Status: F Test: BILIRUBIN,DIRECT; Value: < 0.1; Range: 0.0-0.2; Units: MG/DL; Status: F Test: TOTAL PROTEIN; Value: 5.8; Range: 6.4-8.2; Abnormal: Below low normal; Units: GM/DL; Status: F Test: ALBUMIN; Value: 3.5; Range: 3.2-5.2; Units: GM/DL; Status: F Test: ALBUMIN/GLOBULIN RATIO; Value: 1.52; Range: 1.00-1.93; Status: F Lab Order: Salicylate Level; SPEC'M 08/06/16 14:48 Test: SALICYLATE LEVEL; Value: 3.9; Range: 5.0-30.0; Abnormal: Below low normal; Units: MG/DL; Status: F Lab Order: Thyroid Stimulating Hormone; SPEC'M 08/06/16 14:48 Test: THYROID STIMULATING HORMONE; Value: 1.000; Range: 0.358-3.740; Units: uIU/ML; Status: F Outcome: 08/06 21:55 Decision to Hospitalize by Provider. 11 22:36 Discharge Assessment: Patient awake, alert and oriented x 3. No cognitive and/or slm functional deficits noted. Patient verbalized understanding of disposition instructions. patient administered narcotics - no. The following High Risk Discharge criteria are identified: None. Admitted to Psych accompanied by tech, via wheelchair, with chart. Condition: stable. No special radiology studies were completed. Property removed, inventory done, secured in belongings bag- placed in locked locker. 22:37 Patient left the ED. slm Signatures: Dispatcher [employer] EDMS aMbel Rodgers, PSA PSA ca Clayton, Malvin, PSA PSA cl Annabel Bentley, Reg Reg gb Chyna Boogie, Reg Reg lg Nael Cash, Security Aide Securpf Becky Schwarz, PSA PSA ml4 Leatha Gomes cmb Danie Croft, DO cs11 Colleen Rivera,SEE SUPERVISOR SEE SUPERVISOR slm Berna Macario, RN RN mk4 Dakota Ames jp4 Nurys Dhaliwal,DORENE RN af2 Jessica Blanca, Reg Reg hs2 Nael Arias, Reg Reg pm4 Corrections: (The following items were deleted from the chart) 14:37 14:35 Allergies: no known allergies; mk4 mk4 Chart Complete MTDD
--- NOTE | 2016-08-08 23:38 | EDDOCDS ---
Physician Documentation [facility] Name: Otis Benitez Age: 35 yrs Sex: Male : 1980 Arrival Date: 08/06/2016 Time: 14:27 Bed OBSERVATION Private MD: Disposition: 08/06/16 21:55 Hospitalization ordered by Magen Aguilar for Inpatient Admission. Preliminary diagnosis are Major depressive disorder, recurrent, Suicidal ideations. - Bed requested for Admit. - Status is Inpatient Admission. slm - Condition is Stable. - Problem is an ongoing problem. - Symptoms are unchanged. Historical: - Allergies: PENICILLINS; - Home Meds: 1. none - PMHx: Asthma; - PSHx: none; - Social history: Smoking status: No barriers to communication noted, The patient speaks fluent Welsh, Smoking status: Patient uses tobacco products, heavy tobacco smoker. - Family history: Not pertinent. - : The pt / caregiver states he / she is not on anticoagulants. Home medication list is obtained from the patient. - Exposure Risk Screening:: None identified. Vital Signs: 08/06 14:36 BP 140 / 88; Pulse 92; Resp 18; Temp 97(T); Pulse Ox 97% on R/A; mk4 20:22 BP 123 / 75; Pulse 80; Resp 16; Temp 97.5(O); Pulse Ox 98% on R/A; Pain 0/10; slm 22:34 BP 138 / 84; Pulse 79; Resp 16; Temp 97.5; Pulse Ox 97% ; Pain 0/10; slm MDM: 14:34 Consult PFS/PSA/Chief Of Safety And Protection ordered. cs11 14:34 Consult PFS/PSA/Chief Of Safety And Protection: Patient's case requires discussion with on-call cs11 Psychiatrist ordered. 14:34 PSA/PFS to call Nursing Manager Lighting, to enter patient data on [place] Safe Act if patient cs11 involuntarily admitted or transferred for SI or HI ordered. 14:34 Confirm accurate psychiatric medication list and times of last dosage ordered. cs11 14:34 Detain Pt Until Medically/PFS Cleared ordered. cs11 14:34 Acetaminophen Level Ordered. EDMS 14:34 Basic Metabolic Profile Ordered. EDMS 14:34 Complete Blood Count Ordered. EDMS 14:34 Drug Eval Toxicology ED Only Ordered. EDMS 14:34 Ethyl Alcohol (ethanol) Ordered. EDMS 14:34 Liver Profile Ordered. EDMS 14:35 Salicylate Level Ordered. EDMS 14:35 Thyroid Stimulating Hormone Ordered. EDMS 14:56 Financial registration complete. pm4 15:06 [facility] Payment Agreement was scanned into STYLIGHT and attached to record. pm4 15:20 Consult PFS/PSA/Chief Of Safety And Protection complete. mk4 15:20 Consult PFS/PSA/Chief Of Safety And Protection: Patient's case requires discussion with on-call 4 Psychiatrist complete. 15:20 PSA/PFS to call Nursing Manager Lighting, to enter patient data on [place] Safe Act if patient mk4 involuntarily admitted or transferred for SI or HI complete. 16:56 REGULAR DIET PLASTIC TURNER+DIET ordered. EDMS 21:44 Admit to [facility]: ordered. EDMS 21:45 REGULAR DIET ordered. EDMS 21:53 Acetaminophen Level Reviewed. cs11 21:53 Basic Metabolic Profile Reviewed. cs11 21:53 Drug Eval Toxicology ED Only Reviewed. cs11 21:53 Liver Profile Reviewed. cs11 21:53 Salicylate Level Reviewed. cs11 21:53 Complete Blood Count Reviewed. cs11 21:53 Ethyl Alcohol (ethanol) Reviewed. cs11 21:53 Thyroid Stimulating Hormone Reviewed. cs11 21:56 BED REQUEST+ADM ordered. EDMS 22:02 [facility] Legal paperwork was scanned into STYLIGHT and attached to record. ml4 22:06 Other: Yyvo-xf-Rbxv consult was scanned into STYLIGHT and attached to record. 4 08/07 03:46 T-Sheet-- Draft Copy was scanned into STYLIGHT and attached to record. hs2 12:26 Other: PROGRESS NOTE was scanned into STYLIGHT and attached to record. gb Signatures: Dispatcher [employer] EDMS Annabel Bentely, Reg Reg gb Becky Schwarz, PSA PSA ml4 Danie Croft, DO cs11 Colleen Rivera LPN LPN Berna Chapa RN RN mk4 Jessica Blanca, Reg Reg hs2 Nael Arias, Reg Reg pm4 The chart was reviewed and I authenticate all verbal orders and agree with the evaluation and treatment provided.Corrections: (The following items were deleted from the chart) 08/06 14:37 14:35 Allergies: no known allergies; 4 mk4 Attachments: 15:06 [facility] Payment Agreement pm4 08/07 03:46 T-Sheet-- Draft Copy hs2 Chart Complete MTDD
--- NOTE | 2016-08-08 23:38 | EDDOCDS ---
Physician Documentation [facility] Name: Otis Benitez Age: 35 yrs Sex: Male : 1980 Arrival Date: 08/06/2016 Time: 14:27 Bed OBSERVATION Private MD: Disposition: 08/06/16 21:55 Hospitalization ordered by Magen Aguilar for Inpatient Admission. Preliminary diagnosis are Major depressive disorder, recurrent, Suicidal ideations. - Bed requested for Admit. - Status is Inpatient Admission. slm - Condition is Stable. - Problem is an ongoing problem. - Symptoms are unchanged. Historical: - Allergies: PENICILLINS; - Home Meds: 1. none - PMHx: Asthma; - PSHx: none; - Social history: Smoking status: No barriers to communication noted, The patient speaks fluent Bulgarian, Smoking status: Patient uses tobacco products, heavy tobacco smoker. - Family history: Not pertinent. - : The pt / caregiver states he / she is not on anticoagulants. Home medication list is obtained from the patient. - Exposure Risk Screening:: None identified. Vital Signs: 08/06 14:36 BP 140 / 88; Pulse 92; Resp 18; Temp 97(T); Pulse Ox 97% on R/A; mk4 20:22 BP 123 / 75; Pulse 80; Resp 16; Temp 97.5(O); Pulse Ox 98% on R/A; Pain 0/10; slm 22:34 BP 138 / 84; Pulse 79; Resp 16; Temp 97.5; Pulse Ox 97% ; Pain 0/10; slm MDM: 14:34 Consult PFS/PSA/Airborne Sensor Specialist ordered. cs11 14:34 Consult PFS/PSA/Airborne Sensor Specialist: Patient's case requires discussion with on-call cs11 Psychiatrist ordered. 14:34 PSA/PFS to call Nursing [employer], to enter patient data on [place] Safe Act if patient cs11 involuntarily admitted or transferred for SI or HI ordered. 14:34 Confirm accurate psychiatric medication list and times of last dosage ordered. cs11 14:34 Detain Pt Until Medically/PFS Cleared ordered. cs11 14:34 Acetaminophen Level Ordered. EDMS 14:34 Basic Metabolic Profile Ordered. EDMS 14:34 Complete Blood Count Ordered. EDMS 14:34 Drug Eval Toxicology ED Only Ordered. EDMS 14:34 Ethyl Alcohol (ethanol) Ordered. EDMS 14:34 Liver Profile Ordered. EDMS 14:35 Salicylate Level Ordered. EDMS 14:35 Thyroid Stimulating Hormone Ordered. EDMS 14:56 Financial registration complete. pm4 15:06 [facility] [place] Agreement was scanned into [employer] and attached to record. pm4 15:20 Consult PFS/PSA/Airborne Sensor Specialist complete. mk4 15:20 Consult PFS/PSA/Airborne Sensor Specialist: Patient's case requires discussion with on-call 4 Psychiatrist complete. 15:20 PSA/PFS to call [employer], to enter patient data on [place] Safe Act if patient mk4 involuntarily admitted or transferred for SI or HI complete. 16:56 REGULAR DIET PLASTIC TURNER+DIET ordered. EDMS 21:44 Admit to [facility]: ordered. EDMS 21:45 REGULAR DIET ordered. EDMS 21:53 Acetaminophen Level Reviewed. cs11 21:53 Basic Metabolic Profile Reviewed. cs11 21:53 Drug Eval Toxicology ED Only Reviewed. cs11 21:53 Liver Profile Reviewed. cs11 21:53 Salicylate Level Reviewed. cs11 21:53 Complete Blood Count Reviewed. cs11 21:53 Ethyl Alcohol (ethanol) Reviewed. cs11 21:53 Thyroid Stimulating Hormone Reviewed. cs11 21:56 BED REQUEST+ADM ordered. EDMS 22:02 [facility] Legal paperwork was scanned into [employer] and attached to record. ml4 22:06 Other: [id number] consult was scanned into [employer] and attached to record. 4 08/07 03:46 T-Sheet-- Draft Copy was scanned into [employer] and attached to record. hs2 12:26 Other: PROGRESS NOTE was scanned into [employer] and attached to record. gb Signatures: Dispatcher [employer] EDMS Annabel Bentley, Reg Reg gb Becky Schwarz, PSA PSA ml4 Danie Croft, DO cs11 Colleen Rivera LPN LPN Berna Chapa RN RN mk4 Jessica Blanca, Reg Reg hs2 Nael Arias, Reg Reg pm4 The chart was reviewed and I authenticate all verbal orders and agree with the evaluation and treatment provided.Corrections: (The following items were deleted from the chart) 08/06 14:37 14:35 Allergies: no known allergies; 4 mk4 Attachments: 15:06 [facility] [place] Payment Agreement pm4 08/07 03:46 T-Sheet-- Draft Copy hs2 Chart Complete MTDD
[2016-08-09 06:21] VITALS: BP 133/66
[2016-08-09] MEDS: NICOTINE 21MG/24HR 1 EA TRANSDERMAL TD SCH (09:00)
[2016-08-09] MEDS: ESCITALOPRAM OXALATE 10 MG TAB (LEXAPRO) PO SCH (09:00)
--- NOTE | 2016-08-09 15:47 | IPN ---
DATE: 08/09/2016 TREATMENT: The patient is seen and his treatment reviewed. He currently is on his fourth day of inpatient admission and is prescribed Lexapro 10 mg daily for treatment of depression, however, he has not been taking the Lexapro, although he has been attending therapeutic programs including group and activities. He presents with no new problems. He states he is feeling much better and will be ready for discharge. OBSERVATION: VITAL SIGNS: Blood pressure 123/66, pulse 86, respirations 18, temperature 96.9. The patient is observed to be cooperative. He is adequately groomed and appropriately dressed. No abnormal involuntary movements noted. He is observed interacting normally. His speech is fluent. No abnormal thought process. No delusions or other psychotic features noted. He described his mood as better and denies active thoughts, plans or intent of suicidal or homicide. ASSESSMENT: The patient has continued to refuse medication, however, he seems to be responding to therapeutic interventions and currently does not appear to pose a risk of danger to self or to others. PLAN: He will be reassessed in the next 24 hours and if stable, will be discharged with appropriate followup arrangements. DAMIR
[2016-08-09 18:00] VITALS: BP 131/79
[2016-08-09] MEDS: traZODone 50 MG TAB PO PRN (22:53)
[2016-08-10 06:14] VITALS: BP 144/87
[2016-08-10] MEDS ORDERED: NICO21PAT TD (08:17)
[2016-08-10] MEDS ORDERED: ALBU17IN INH (08:17)
[2016-08-10] MEDS: NICOTINE 21MG/24HR 1 EA TRANSDERMAL TD SCH (08:45)
[2016-08-10] MEDS: ESCITALOPRAM OXALATE 10 MG TAB (LEXAPRO) PO SCH (08:45)
--- NOTE | 2016-08-10 10:46 | MHDS ---
DATE OF ADMISSION: 08/06/2016 DATE OF DISCHARGE: 08/10/2016 HISTORY: Preet Benitez is a 35-year-old -[place]in[place]e man who was brought to the emergency room by police after his mother called [facility] Police to report that he had made threats to harm himself. The patient was first encountered by this procedure writer in the emergency department during which he was interviewed and did state that he was distraught because of his mother kicking him out of house and that he felt totally abandoned and rejected. At the time of admission, the patient's mother was interviewed on the phone, and she stated that patient has his entire adult life been dependent on her and her and not willing to be independent and seek help for his mental illness and substance abuse problems. On the day of his recent emergency department visit, he said he called his mother to report that he had ingested several aspirin tablets in order to kill himself. Although subsequently recanting his story, stating that he did not actually swallow the said pills but had plans of doing so. His mother still called authorities to report the incident, thus be was being brought to the emergency room. Patient's mother reported that he has been quite noncompliant with recommended followups with his substance abuse and psychiatric problems. On interviewing the patient on the unit, he reported two previous [facility] admissions and admitted that he did not followup with outpatient treatment recommendations. He was noted to be emotional reporting depressive symptoms including depressed mood, insomnia, feelings of hopelessness and helplessness. PAST PSYCHIATRIC HISTORY: Mr. Benitez had two previous [facility] admissions from 10/31/2011 to 11/05/2011 and 06/03/2012 to 06/09/2012, both related to worsening depressive symptoms, substance abuse and suicidal ideation. In his first admission, he reported had ingested 25 to 30 tablets of Xanax of 1 mg each tablet in a suicide attempt. The second admission was on a voluntary status. SUBSTANCE ABUSE HISTORY: Mr. Benitez has an extensive substance use history including the use of opioids, benzodiazepines, alcohol, marijuana and several other substances. He refused to elaborate on but admitted to having used every substance under the sun. He generally has not been committed to substance abuse treatment programs. His two previous admissions as noted were also related in part to substance use problems. MEDICAL HISTORY: He was diagnosed in childhood with asthma but has not had symptoms since an adult. ALLERGIES: PENICILLIN. Please refer to history and physical for family and social related history. HOSPITAL COURSE: On admission, the patient was noted to be of average height and with slight thin build. His grooming and dressing were relatively okay. Attitude was cooperative and behavior calm. He maintained eye contact. No unusual mannerisms were noted. His speech was of normal volume, rate and inflection. Thought process was organized and logical. There were no delusional contents. He denied hallucinations as well as active suicidal thoughts, plans or intents. ADMITTING DIAGNOSES: Major depressive disorder. Opioid use disorder. Cannabis use disorder. IDENTIFIED PROBLEM LIST: Depressed mood. Risk for suicide. Substance abuse. The patient was started on Lexapro 10 mg orally daily for treatment of his depressive symptoms and in addition was offered therapeutic program including group, individual and activity therapies. However, he refused to take the Lexapro and continued to refuse through the duration of his hospital admission. Nevertheless, he did show some improvement in his symptoms. He attended relevant group and activity therapies and socialized normally with his peers. He was not a management problem on the unit. Ultimately, he was deemed stable even without the use of pharmacological treatment. MENTAL STATUS ON DISCHARGE: Patient is calm, cooperative. His speech is coherent. No delusions or hallucinations evident. Mood is notably less depressed and he denies active thoughts, plan or intent of suicide or homicide. ASSESSMENT: He is noted to be stable and does not appear to pose risk of danger to self or to others. DISCHARGE DIAGNOSES: Adjustment disorder with depressed mood. Substance abuse. DISCHARGE PLAN: Patient is discharged today with followup arrangement with his primary mental health provider. Substance abuse treatment is also recommended. No discharge medications as he has not been taking medications currently and has improved without any. He also has indicated he is unwilling to take psychotropic medication. [facility]
== END 2016-08-10 12:30 | disposition home or self-care (01) | DRG 754 ==
LOC: M ED 14:27 → M PSY 22:44
PROVIDERS: ADMIT Psychiatry & Neurology Psychiatry; ATTEND Psychiatry & Neurology Psychiatry
DX: F43.21 Adjustment disorder with depressed mood (principal); F17.200 Nicotine dependence, unspecified, uncomplicated; J45.909 Unspecified asthma, uncomplicated; F12.90 Cannabis use, unspecified, uncomplicated

== ENCOUNTER 2018-10-08 15:09 | Emergency (ER) | payer OTHER, SELFPAY ==
[~2018-10-08] VITALS: Ht 167.6 cm; Wt 66.1 kg
[~2018-10-08 15:09] MED LIST changes: +ALBU17IN INH; +NICO21PAT TD
[2018-10-08] MEDS ORDERED: CYCL10TA PO (17:34)
[2018-10-08] MEDS ORDERED: IBUP-1022 PO (17:34)
[2018-10-08 17:40] VITALS: BP 159/85
== END 2018-10-08 17:43 | disposition home or self-care (01) ==
LOC: M ED 15:09
DX: M54.5 Low back pain (principal); F17.210 Nicotine dependence, cigarettes, uncomplicated; Z88.0 Allergy status to penicillin; F41.9 Anxiety disorder, unspecified

== ENCOUNTER → 2018-12-04 | Outpatient (CLI) | payer SELFPAY, OTHER ==
[~2018-12-04] MED LIST changes: +CYCL10TA PO; +IBUP-1022 PO
--- NOTE | 2018-12-04 16:37 | REP ---
RIGHT HIP, TWO VIEWS: HIP: There is no evidence of an acute fracture, dislocation or intrinsic bone disease. IMPRESSION: No fracture or dislocation. Electronically Signed by Anthony Hidalgo MD 12/04/2018 06:48 P
--- NOTE | 2018-12-04 16:38 | REP ---
LUMBOSACRAL SPINE, FIVE VIEWS: Five views of the lumbosacral spine are performed. There is a transitional lumbar vertebral body with only four lumbar type vertebral bodies present. There is no fracture or dislocation. There is normal lumbar lordosis. There is no spondylolysis or spondylolisthesis. Disc spaces are well preserved. Posterior elements are intact but there is spina bifida occulta of S1, which is a normal variant. IMPRESSION: Transitional lumbar vertebral body with only four lumbar type vertebral bodies present. Electronically Signed by Anthony Hidalgo MD 12/04/2018 06:48 P
== END ==
LOC: M LRY 15:53
PROVIDERS: ATTEND Nurse Practitioner Family
DX: M54.5 Low back pain (principal); M25.551 Pain in right hip

== ENCOUNTER 2018-12-17 19:54 | Emergency (ER) | payer OTHER, SELFPAY ==
[~2018-12-17] VITALS: Ht 167.6 cm; Wt 65.5 kg
[2018-12-17] MEDS ORDERED: LIDOCAINE 2% MDV 20 ML VIAL SC ONE (23:30)
[2018-12-18] MEDS ORDERED: KEFL500C17 PO (00:08)
[2018-12-18] MEDS ORDERED: CEPHALEXIN 500 MG CAP PO ONE (00:15)
[2018-12-18 00:28] VITALS: BP 137/84
--- NOTE | 2018-12-18 07:54 | REP ---
Clinical: Trauma. Laceration. Technique: AP, lateral, bilateral oblique views left third digit . Findings: The osseous structures and joint spaces are intact and normal. There is no evidence for acute fracture or dislocation. Surrounding soft tissues are unremarkable. No subcutaneous emphysema or radiodense foreign body. Impression: No foreign body. No osseous involvement. Electronically Signed by Mal Higginbotham MD 12/18/2018 07:45 A
== END 2018-12-18 00:30 | disposition home or self-care (01) ==
LOC: M ED 19:54
DX: S61.213A Laceration without foreign body of left middle finger without damage to nail, initial encounter (principal); W26.0XXA Contact with knife, initial encounter; Y92.89 Other specified places as the place of occurrence of the external cause; Y99.0 Civilian activity done for income or pay; Z88.0 Allergy status to penicillin

== ENCOUNTER → 2019-03-16 | Outpatient (REF) | payer OTHER ==
[~2019-03-16] MED LIST changes: +KEFL500C17 PO
[2019-03-16 14:33] LABS: BASO # 0.1 10^3/uL (0.0-0.2); BASO % 0.6 % (0.0-1.0); EOS # 0.4 10^3/uL (0.0-0.50); EOS % 4.3 % (0.0-3.0); HEMATOCRIT 45.4 % (42.0-52.0); HEMOGLOBIN 15.4 g/dl (13.5-17.5); LYMPH # 2.1 10^3/uL (1.5-4.5); LYMPH % 25.9 % (24.0-44.0); MEAN CORPUSCULAR HEMOGLOBIN 31.1 pg (27.0-33.0); MEAN CORPUSCULAR HGB CONC 33.9 g/dl (32.0-36.5); MEAN CORPUSCULAR VOLUME 91.7 fl (80.0-96.0); MONO # 0.7 10^3/uL (0.0-0.8); NEUTROPHILS # 4.9 10^3/uL (1.8-7.7); NEUTROPHILS % 59.8 % (36.0-66.0); PLATELET COUNT, AUTOMATED 203 10^3/uL (150-450); RED BLOOD COUNT 4.95 10^6/uL (4.30-6.10); WHITE BLOOD COUNT 8.1 10^3/uL (4.0-10.0)
[2019-03-16 14:47] LABS: ALT/SGPT 39 U/L (12-78); BILIRUBIN,TOTAL 0.3 MG/DL (0.2-1.0); BLOOD UREA NITROGEN 12 MG/DL (7-18); CALCIUM LEVEL 9.1 MG/DL (8.5-10.1); CARBON DIOXIDE LEVEL 28 MEQ/L (21-32); CHLORIDE LEVEL 108 MEQ/L (98-107); CHOLESTEROL LEVEL 272 MG/DL (<200); CREATININE FOR GFR 0.92 MG/DL (0.70-1.30); FREE T4 1.05 NG/DL (0.76-1.46); GLOMERULAR FILTRATION RATE > 60.0 (>60); GLUCOSE, FASTING 98 MG/DL (70-100); HDL CHOLESTEROL 40 MG/DL (>40); NON-HDL-C 232 MG/DL; POTASSIUM SERUM 4.3 MEQ/L (3.5-5.1); SODIUM LEVEL 140 MEQ/L (136-145); TOTAL 25(OH) VITAMIN D 23.5 NG/ML (30.0-100.0); TOTAL PROTEIN 6.8 GM/DL (6.4-8.2); TRIGLYCERIDES LEVEL 422 MG/DL (<150)
== END ==
LOC: M SFHCSACK 09:13
PROVIDERS: ATTEND Physician Assistant
DX: Z13.21 Encounter for screening for nutritional disorder (principal); Z13.29 Encounter for screening for other suspected endocrine disorder; J45.909 Unspecified asthma, uncomplicated; Z83.438 Family history of other disorder of lipoprotein metabolism and other lipidemia

== ENCOUNTER → 2020-01-10 | Outpatient (CLI) | payer OTHER ==
[~2020-01-10] MED LIST changes: +CYCL-707 PO; -CYCL10TA PO
== END ==
LOC: M LABSMTC 09:45
PROVIDERS: ATTEND Orthopaedic Surgery
DX: Z03.818 Encounter for observation for suspected exposure to other biological agents ruled out (principal); Z11.59 Encounter for screening for other viral diseases

== ENCOUNTER → 2020-01-23 | Outpatient (CLI) | payer OTHER | LOC: M LABSMTC 10:13 | PROVIDERS: ATTEND Physician Assistant | DX: Z20.828 Contact with and (suspected) exposure to other viral communicable diseases (principal) ==

== ENCOUNTER → 2020-02-06 | Outpatient (CLI) | payer OTHER | LOC: M LABSMTC 10:58 | PROVIDERS: ATTEND Physician Assistant | DX: Z03.818 Encounter for observation for suspected exposure to other biological agents ruled out (principal); Z11.59 Encounter for screening for other viral diseases ==

== ENCOUNTER 2021-04-12 22:27 | Emergency (ER) | payer OTHER ==
[~2021-04-12] VITALS: Ht 167.6 cm; Wt 65.1 kg
[2021-04-12 22:27] VITALS: BP 141/83
[2021-04-12] MEDS ORDERED: SUBO8MIS SL (22:32)
[2021-04-13] MEDS ORDERED: FLUORESCEIN OPHTH 1 MG STRIP OU ONE (00:55)
[2021-04-13] MEDS ORDERED: TETRACAINE 0.5% OPHTH SOLN 4ML OU ONE (00:55)
[2021-04-13] MEDS ORDERED: OCUF0.25 OP (01:36)
== END 2021-04-13 01:52 | disposition home or self-care (01) ==
LOC: M ED 22:27
DX: T26.12XA Burn of cornea and conjunctival sac, left eye, initial encounter (principal); X08.8XXA Exposure to other specified smoke, fire and flames, initial encounter; Y92.009 Unspecified place in unspecified non-institutional (private) residence as the place of occurrence of the external cause; Y93.9 Activity, unspecified; Y99.9 Unspecified external cause status; F17.200 Nicotine dependence, unspecified, uncomplicated; Z88.0 Allergy status to penicillin

== ENCOUNTER → 2021-10-30 | Outpatient (CLI) | payer OTHER ==
[~2021-10-30] MED LIST changes: +OCUF0.25 OP; +SUBO8MIS SL
[2021-10-30 11:02] LABS: APPEARANCE, URINE CLEAR (CLEAR); BACTERIA, URINE AUTO NEGATIVE (NEGATIVE); BILIRUBIN, URINE AUTO NEGATIVE (NEGATIVE); BLOOD, URINE BLOOD NEGATIVE (NEGATIVE); COLOR, URINE YELLOW (YELLOW); GLUCOSE, URINE (UA) AUTO NEGATIVE (NEGATIVE); KETONE, URINE AUTO TRACE mg/dL (NEGATIVE); LEUKOCYTE ESTERASE, URINE AUTO NEGATIVE (NEGATIVE); NITRITE, URINE AUTO NEGATIVE (NEGATIVE); PROTEIN, URINE AUTO NEGATIVE (NEGATIVE); RBC, URINE AUTO 0 /HPF (0-3); SPECIFIC GRAVITY URINE AUTO 1.021 (1.002-1.035); SQUAMOUS EPITHELIAL CELL UR AU 0 /HPF (0-6); WBC, URINE AUTO 1 /HPF (0-3)
[2021-10-30 11:05] LABS: BASO # 0.1 10^3/uL (0.0-0.2); BASO % 0.7 % (0.0-1.0); EOS % 10.2 % (0.0-3.0); HEMATOCRIT 42.3 % (42.0-52.0); HEMOGLOBIN 14.1 g/dl (13.5-17.5); LYMPH # 3.3 10^3/uL (1.5-5.0); LYMPH % 34.6 % (24.0-44.0); MEAN CORPUSCULAR HEMOGLOBIN 31.1 pg (27.0-33.0); MEAN CORPUSCULAR HGB CONC 33.3 g/dl (32.0-36.5); MEAN CORPUSCULAR VOLUME 93.4 fl (80.0-96.0); MONO # 0.9 10^3/uL (0.0-0.8); MONO % 9.9 % (2.0-8.0); NEUTROPHILS # 4.2 10^3/uL (1.5-8.5); NEUTROPHILS % 44.2 % (36.0-66.0); PLATELET COUNT, AUTOMATED 198 10^3/uL (150-450); RED BLOOD COUNT 4.53 10^6/uL (4.30-6.10); WHITE BLOOD COUNT 9.4 10^3/uL (4.0-10.0)
[2021-10-30 11:32] LABS: HEMOGLOBIN A1c 5.2 %
[2021-10-30 11:46] LABS: ALBUMIN 3.8 GM/DL (3.2-5.2); ALT/SGPT 32 U/L (12-78); BILIRUBIN,TOTAL 0.3 MG/DL (0.2-1.0); BLOOD UREA NITROGEN 17 MG/DL (7-18); CALCIUM LEVEL 9.1 MG/DL (8.5-10.1); CARBON DIOXIDE LEVEL 32 MEQ/L (21-32); CHLORIDE LEVEL 108 MEQ/L (98-107); CHOLESTEROL LEVEL 241 MG/DL (<200); CREATININE FOR GFR 0.87 MG/DL (0.70-1.30); FREE T4 1.04 NG/DL (0.76-1.46); GLOMERULAR FILTRATION RATE > 60.0 (>60); GLUCOSE, FASTING 99 MG/DL (70-100); HDL CHOLESTEROL 29 MG/DL (>40); NON-HDL-C 212 MG/DL; POTASSIUM SERUM 4.4 MEQ/L (3.5-5.1); SODIUM LEVEL 141 MEQ/L (136-145); TOTAL PROTEIN 6.6 GM/DL (6.4-8.2); TRIGLYCERIDES LEVEL 541 MG/DL (<150)
== END ==
LOC: M WUC 08:08
PROVIDERS: ATTEND Nurse Practitioner Family
DX: E78.00 Pure hypercholesterolemia, unspecified (principal); Z13.1 Encounter for screening for diabetes mellitus; Z13.29 Encounter for screening for other suspected endocrine disorder

== ENCOUNTER → 2023-09-23 | Outpatient (CLI) | payer OTHER ==
[2023-09-23 12:57] LABS: BASO # 0.1 10^3/uL (0.0-0.2); BASO % 0.7 % (0.0-1.0); EOS # 0.6 10^3/uL (0.0-0.5); EOS % 8.2 % (0.0-3.0); HEMATOCRIT 42.6 % (42.0-52.0); HEMOGLOBIN 14.2 g/dl (13.5-17.5); LYMPH # 2.1 10^3/uL (1.5-5.0); LYMPH % 31.1 % (24.0-44.0); MEAN CORPUSCULAR HEMOGLOBIN 30.9 pg (27.0-33.0); MEAN CORPUSCULAR HGB CONC 33.3 g/dl (32.0-36.5); MEAN CORPUSCULAR VOLUME 92.6 fl (80.0-96.0); MONO # 0.7 10^3/uL (0.0-0.8); MONO % 10.1 % (2.0-8.0); NEUTROPHILS # 3.3 10^3/uL (1.5-8.5); PLATELET COUNT, AUTOMATED 168 10^3/uL (150-450); WHITE BLOOD COUNT 6.8 10^3/uL (4.0-10.0)
[2023-09-23 12:59] LABS: APPEARANCE, URINE CLEAR (CLEAR); BACTERIA, URINE AUTO NEGATIVE (NEGATIVE); BILIRUBIN, URINE AUTO NEGATIVE (NEGATIVE); BLOOD, URINE BLOOD NEGATIVE (NEGATIVE); COLOR, URINE AMBER (YELLOW); GLUCOSE, URINE (UA) AUTO NEGATIVE (NEGATIVE); KETONE, URINE AUTO TRACE mg/dL (NEGATIVE); LEUKOCYTE ESTERASE, URINE AUTO NEGATIVE (NEGATIVE); MUCUS, URINE SMALL (NEGATIVE); NITRITE, URINE AUTO NEGATIVE (NEGATIVE); PROTEIN, URINE AUTO NEGATIVE (NEGATIVE); RBC, URINE AUTO 1 /HPF (0-3); SPECIFIC GRAVITY URINE AUTO 1.025 (1.002-1.035); SQUAMOUS EPITHELIAL CELL UR AU 0 /HPF (0-6); WBC, URINE AUTO 0 /HPF (0-3)
[2023-09-23 13:47] LABS: ALBUMIN 3.8 G/DL (3.2-5.2); ALKALINE PHOSPHATASE 56 U/L (46-116); ALT/SGPT 19 U/L (7.0-40); AST/SGOT 17 U/L (<34); BILIRUBIN,TOTAL 0.2 MG/DL (0.3-1.2); BLOOD UREA NITROGEN 14 MG/DL (9-23); CARBON DIOXIDE LEVEL 30 MMOL/L (20-31); CHLORIDE LEVEL 109 MMOL/L (98-107); CHOLESTEROL LEVEL 218 MG/DL (<200); CHOLESTEROL RISK RATIO 7.38 (<5); GLOMERULAR FILTRATION RATE > 60.0 (>60); GLUCOSE, FASTING 100 MG/DL (60-100); HDL CHOLESTEROL 29.5 MG/DL (>40); NON-HDL-C 188.5 MG/DL; POTASSIUM SERUM 4.3 MMOL/L (3.5-5.1); SODIUM LEVEL 140 MMOL/L (136-145); TRIGLYCERIDES LEVEL 437 MG/DL (<150)
== END ==
LOC: M WUC 08:56
PROVIDERS: ATTEND Registered Nurse
DX: Z13.220 Encounter for screening for lipoid disorders (principal); Z13.1 Encounter for screening for diabetes mellitus; Z13.29 Encounter for screening for other suspected endocrine disorder

== ENCOUNTER → 2024-08-17 | Outpatient (CLI) | payer OTHER, SELFPAY ==
[2024-08-17 11:06] LABS: BASO # 0.1 10^3/uL (0.0-0.2); BASO % 0.9 % (0.0-1.0); EOS # 0.4 10^3/uL (0.0-0.5); EOS % 6.3 % (0.0-3.0); HEMATOCRIT 43.7 % (42.0-52.0); HEMOGLOBIN 14.5 g/dl (13.5-17.5); LYMPH % 34.3 % (24.0-44.0); MEAN CORPUSCULAR HEMOGLOBIN 30.5 pg (27.0-33.0); MEAN CORPUSCULAR HGB CONC 33.2 g/dl (32.0-36.5); MONO # 0.6 10^3/uL (0.0-0.8); MONO % 9.9 % (2.0-8.0); NEUTROPHILS # 2.7 10^3/uL (1.5-8.5); NEUTROPHILS % 48.1 % (36.0-66.0); PLATELET COUNT, AUTOMATED 166 10^3/uL (150-450); RED BLOOD COUNT 4.75 10^6/uL (4.30-6.10); WHITE BLOOD COUNT 5.7 10^3/uL (4.0-10.0)
[2024-08-17 11:17] LABS: BACTERIA, URINE AUTO NEGATIVE (NEGATIVE); RBC, URINE AUTO 0 /HPF (0-3); SQUAMOUS EPITHELIAL CELL UR AU 0 /HPF (0-6); WBC, URINE AUTO 1 /HPF (0-3)
[2024-08-17 11:49] LABS: ALBUMIN 3.8 G/DL (3.2-5.2); ALKALINE PHOSPHATASE 59 U/L (40-129); ALT/SGPT 28 U/L (7.0-40); AST/SGOT 18 U/L (<34); BILIRUBIN,TOTAL 0.4 MG/DL (0.3-1.2); BLOOD UREA NITROGEN 20 MG/DL (9-23); CALCIUM LEVEL 9.1 MG/DL (8.5-10.1); CARBON DIOXIDE LEVEL 32 MMOL/L (20-31); CHLORIDE LEVEL 105 MMOL/L (98-107); CHOLESTEROL LEVEL 306 MG/DL (<200); CHOLESTEROL RISK RATIO 8.18 (<5); CREATININE FOR GFR 0.91 MG/DL (0.70-1.30); GLOMERULAR FILTRATION RATE > 60.0 (>60); GLUCOSE, FASTING 87 MG/DL (60-100); HDL CHOLESTEROL 37.4 MG/DL (>40); LDL CHOLESTEROL 199.8 MG/DL (<100); NON-HDL-C 268.6 MG/DL; POTASSIUM SERUM 4.7 MMOL/L (3.5-5.1); SODIUM LEVEL 141 MMOL/L (136-145); TOTAL PROTEIN 6.4 G/DL (5.7-8.2); TRIGLYCERIDES LEVEL 344 MG/DL (<150)
[2024-08-17 11:50] LABS: FREE T4 1.18 NG/DL (0.89-1.76); THYROID STIMULATING HORMONE 1.806 uIU/ML (0.55-4.78)
[2024-08-17 11:54] LABS: FREE T3 3.9 PG/ML (2.3-4.2)
== END ==
LOC: M WUC 08:18
PROVIDERS: ATTEND Registered Nurse
DX: Z13.1 Encounter for screening for diabetes mellitus (principal); Z13.29 Encounter for screening for other suspected endocrine disorder; Z13.220 Encounter for screening for lipoid disorders